=== PATIENT | female | born 1950 | race African-American/Black ===

== ENCOUNTER 2017-12-20 22:40 | Inpatient (IN) | payer OTHER ==
[2017-12-20] MEDS ORDERED: D50W 25 GM/50 ML SYRINGE IV ONE ×2 (22:58→23:51)
[2017-12-20 23:50] LABS: Absolute Lymphocytes (CBC) 1.7 K/uL (0.7-4.9); Absolute Monocytes 0.4 K/uL (0.1-1.3); Basophils % 0.2 % (0-1.3); Hematocrit 38.1 % (36.0-45.0); Lymphocytes % 28.5 % (15.3-44.8); MCV 90.9 fL (80-100); MPV 10.3 fL (7.6-11.3); Monocytes % 5.9 % (3.3-12.3); RBC Red Blood Cell Count 4.19 M/uL (3.86-4.86)
[2017-12-20 23:57] LABS: Bicarbonate 21 mEq/L (21-31); Glucose Level 101 mg/dL (65-120); Lipase 193 U/L (22-51); Potassium 5.3 mEq/L (3.6-5.0); Sodium Level 140 mEq/L (135-145)
[2017-12-21 00:09] LABS: AST/SGOT 39 IU/L (10-42); Albumin 2.1 g/dL (3.2-5.5); Alkaline Phosphatase 144 IU/L (42-121); BUN Blood Urea Nitrogen 57 mg/dL (6-20); Bilirubin Direct 0.1 mg/dL (0-0.2); Bilirubin Total 0.4 mg/dL (0.3-1.2); Protein, Total 6.3 g/dL (6.0-8.3)
[2017-12-21 00:20] LABS: ALT/SGPT < 5 IU/L (10-60)
[2017-12-21 00:21] LABS: Amylase Level 205 U/L (28-100)
[2017-12-21 00:22] LABS: Blood Morphology Comment NOTED (NOT SEEN); Howell-Jolly Bodies NOTED; Platelet Estimate DECR; Platelets, Giant FEW
[2017-12-21] MEDS ORDERED: NA CHLORIDE 0.9% 500 ML ONE ×2 (01:09→02:22)
--- NOTE | 2017-12-21 01:29 | EDPHYS ---
Physician Documentation [facility] Name: Louisa Penn Age: 67 yrs Sex: Female : 1950 Arrival Date: 12/20/2017 Time: 22:41 Bed 2 Private MD: ED Physician Augusto Pollard HPI: 12/21 03:22 This 67 yrs old Black Female presents to ER via EMS with complaints of Low Blood Sugar. tw4 03:22 The patient or guardian reports hypoglycemia. Onset: The symptoms/episode tw4 began/occurred today. Associated signs and symptoms: Pertinent positives: None. Pertinent negatives: None. Current symptoms: In the emergency department the patient's symptoms are unchanged from the initial presentation. Unable to obtain HPI due to obtunded state, patient is in a persistent vegetative state. It is unknown whether or not the patient has had similar symptoms in the past. Historical: - Allergies: 12/20 22:52 Cipro; rv 22:52 Imitrex; rv 22:52 Iodine; rv 22:52 Vicodin; rv - Home Meds: 22:52 allopurinol 100 mg Oral tab 1 tab 2 times per day [Active]; aspirin 81 mg Oral chew rv [Active]; atorvastatin 20 mg Oral tab [Active]; Cymbalta 60 mg Oral cpDR [Active]; Lasix 40 mg Oral tab [Active]; levetiracetam 1,000 mg Oral tab [Active]; memantine 10 mg Oral tab [Active]; metformin 500 mg Oral tr24 [Active]; metoprolol tartrate 25 mg Oral tab 2 tabs once daily [Active]; ondansetron HCl 4 mg/5 mL Oral soln [Active]; Plavix 75 mg Oral tab [Active]; potassium chloride 10 mEq Oral cpER [Active]; Sinemet 25-100 mg Oral tab [Active]; trazodone 50 mg Oral tab [Active]; valsartan 320 mg Oral tab 1 tab once daily [Active]; - PMHx: 22:52 CVA; Diabetes - NIDDM; DYSPHAGIA; Hyperlipidemia; Hypertension; Parkinsons; unspecified rv convulsions; - Immunization history:: Adult Immunizations up to date. - Social history:: Smoking status: Patient/guardian denies using tobacco. - Ebola Screening: : Patient negative for fever greater than or equal to 101.5 degrees Fahrenheit, and additional compatible Ebola Virus Disease symptoms Patient denies exposure to infectious person Patient denies travel to an Ebola-affected area in the 21 days before illness onset No symptoms or risks identified at this time. ROS: 12/21 03:23 Constitutional: Negative for fever, chills, and weight loss, Cardiovascular: Negative tw4 for chest pain, palpitations, and edema, Respiratory: Negative for shortness of breath, cough, wheezing, and pleuritic chest pain, Abdomen/GI: Negative for abdominal pain, nausea, vomiting, diarrhea, and constipation, Back: Negative for injury and pain, MS/Extremity: Negative for injury and deformity, Skin: Negative for injury, rash, and discoloration, Neuro: Negative for headache, weakness, numbness, tingling, and seizure. Exam: 03:23 Constitutional: This is a well developed, well nourished patient who is awake, alert, tw4 and in no acute distress. Head/Face: Normocephalic, atraumatic. Chest/axilla: Normal chest wall appearance and motion. Nontender with no deformity. No lesions are appreciated. Cardiovascular: Regular rate and rhythm with a normal S1 and S2. No gallops, murmurs, or rubs. Normal PMI, no JVD. No pulse deficits. Respiratory: Lungs have equal breath sounds bilaterally, clear to auscultation and percussion. No rales, rhonchi or wheezes noted. No increased work of breathing, no retractions or nasal flaring. 03:23 Abdomen/GI: Inspection: distension, that is mild, Bowel sounds: diminished, Palpation: mass, that is hard, of the suprapubic area, right lower quadrant and left lower quadrant. Vital Signs: 12/20 22:53 BP 111 / 74; Pulse 67; Resp 16; Temp 97.5; Weight 72.57 kg (R); rv 23:30 BP 94 / 72; Pulse 69; Resp 14; rv 12/21 00:00 BP 94 / 66; Pulse 69; Resp 16; Pulse Ox 100% ; rv 01:00 BP 76 / 48; Pulse 72; Resp 16; Pulse Ox 100% ; bp 02:00 BP 79 / 47; Pulse 69; Resp 18; Pulse Ox 100% ; rv 02:39 BP 86 / 65; Pulse 70; Resp 12; Pulse Ox 99% ; rv 03:00 BP 88 / 72; Pulse 69; Resp 13; Pulse Ox 98% ; bp 03:30 BP 104 / 84; Pulse 74; Resp 15; Pulse Ox 94% ; bp 04:00 BP 62 / 40; Pulse 79; Resp 14; Pulse Ox 90% ; bp 04:30 BP 105 / 68; Pulse 85; Resp 11; Pulse Ox 86% on R/A; bp 04:45 BP 67 / 45; Pulse 87; Resp 12; Pulse Ox 82% ; bp 05:00 BP 80 / 56; Pulse 90; Resp 13; Pulse Ox 100% on Non-rebreather mask; bp Procedures: 03:18 Central Line: the site was prepped with Betadine, in sterile fashion, a triple lumen tw4 catheter was inserted, in the right femoral vein, in 1 attempts. placement was verified, by blood return, the site was dressed with using sterile technique, the patient tolerated the procedure, well. MDM: 12/20 22:49 Patient medically screened. tw4 12/21 03:18 Data reviewed: vital signs, EMS record. Data reviewed: nurses notes. Data interpreted: tw4 monitoring engineer: rhythm is normal sinus rhythm, Pulse oximetry: Interpretation: normal. Counseling: I had a detailed discussion with the patient and/or guardian regarding: the historical points, exam findings, and any diagnostic results supporting the discharge/admit diagnosis. Physician consultation: Juliann Broderick MD was contacted at 01:00, regarding patient's condition. Physician consultation: would like admission per Dr. Cruz Martinez MD called Dr Martinez concerning patient several times in the ED starting at 2330. Dr Martinez had not returned the call after several messages being left on his phone. D/W Dr Poole who stated that he would take care of the patient during the initial hospital stay but the patient will need to admitted to Dr Martinez. Admission orders: after a detailed discussion of the patient's condition and case, the admit orders are written by me. 12/20 22:56 Order name: Amylase, Serum; Complete Time: 01:24 tw4 12/20 22:56 Order name: Basic Metabolic Panel; Complete Time: 01:24 tw4 12/21 01:25 Interpretation: Normal except: K 5.3; BUN 57; CRE 3.56; GFR 15. tw4 12/20 22:56 Order name: CBC with Diff; Complete Time: 01:24 tw4 12/21 01:25 Interpretation: HGB 11.7; MCV 90.9; MCHC 30.8; PLT 48; RDW 19.2. tw4 12/20 22:56 Order name: Hepatic Function; Complete Time: 01:24 tw4 12/20 22:56 Order name: Lipase; Complete Time: 01:24 tw4 12/21 00:07 Interpretation: Normal except: LIP 193. tw4 12/20 22:56 Order name: Urine Microscopic Only tw4 12/21 00:22 Order name: Manual Differential; Complete Time: 01:24 EDDE 12/21 01:25 Interpretation: Within normal limits. tw4 12/21 01:09 Order name: CT Abd/Pelvis - Without Cont tw4 12/21 01:26 Order name: Lactate; Complete Time: 03:00 4 12/21 01:26 Order name: Blood Culture* tw4 12/21 04:44 Order name: Urine Dipstick--Ancillary (enter results) ms 12/21 05:28 Order name: Urine Dipstick-Ancillary EDDE 12/21 05:58 Order name: Lactate Sepsis 2 HR Follow-up EDDE 12/20 22:56 Order name: IV Saline Lock; Complete Time: 22:57 tw4 12/20 22:56 Order name: Labs collected and sent; Complete Time: 23:45 tw4 12/20 22:57 Order name: Blood Glucose Level; Complete Time: 22:59 rv 12/21 04:24 Order name: [place]; Complete Time: 04:35 tw4 Administered Medications: 12/20 23:11 Drug: D50W 50 ml Route: IVP; Site: right forearm; rv 23:34 Follow up: Response: Blood sugar is elevated rv 23:45 Drug: D50W 50 ml Route: IVP; Site: right antecubital; rv 03 00:06 Follow up: Response: No adverse reaction rv 01:00 Drug: NS 0.9% 500 ml Route: IV; Rate: bolus; Site: right forearm; bp 03:31 Follow up: IV Status: Completed infusion; IV Intake: 500ml bp 02:15 Drug: NS 0.9% 500 ml Route: IV; Rate: bolus; Site: right forearm; rv 03:32 Follow up: IV Status: Completed infusion; IV Intake: 500ml bp 03:30 Drug: Zosyn 2.25 grams Route: IVPB; Infused Over: 60 mins; Site: right femoral; bp 04:26 Follow up: IV Status: Completed infusion bp 03:30 Drug: Flagyl 500 mg Volume: 100 ml; Route: IVPB; Rate: 200 ml/hr; Infused Over: 30 bp mins; Site: right femoral; 04:25 Follow up: IV Status: Completed infusion bp 03:30 Drug: Dopamine drip 5 mcg/kg/min - (DOPamine 400 mg, D5W 250 ml) Route: IV; Rate: bp calculated rate; Site: right femoral; 05:04 Follow up: IV Status: Infusion continued upon admission bp 04:26 Drug: Levophed (4 mg/250 mL D5W 4 mcg/min Route: IV; Rate: calculated rate; Site: right bp femoral; 05:03 Follow up: IV Status: Infusion continued upon admission bp 04:27 Drug: NS 0.9% (30 ml/kg) 30 ml/kg Route: IV; Rate: bolus; Site: right femoral; bp 05:05 Follow up: IV Status: Infusion continued upon admission bp Point of Care Testing: Blood Glucose: 12/20 22:55 Blood Glucose: 34 mg/dL; rv 23:30 Blood Glucose: 68 mg/dL; rv 12/21 00:26 Blood Glucose: 194 mg/dL; ao Ranges: Critical Glucose Levels:Adult <50 mg/dl or >400 mg/dl <40 mg/dl or >180 mg/dl Disposition: 12/21/17 01:28 Hospitalization ordered by Cruz Martinez for Inpatient Admission. Preliminary diagnosis are Hypotension, unspecified, Acute kidney failure. - Bed requested for Intensive Care Unit. - Status is Inpatient Admission. rv - Condition is Stable. - Problem is new. - Symptoms have improved. UTI on Admission? No Signatures: Dispatcher [employer] YENNYDE Tiffanie Jeronimo RN RN kl Peltier, Brian, RN RN bp Wadley, Terrence, MD MD tw4 Aneesh Villatoro RN RN rv Corrections: (The following items were deleted from the chart) 12/20 23:40 22:56 Creatinine for Radiology+C.LAB.BRZ ordered. [facility] 06/03 01:25 00:07 K 5.3. tw4 01:25 01:24 Normal except: K 5.3; BUN 57; CRE 3.56. tw4 tw4 04:55 01:28 Hospitalization Ordered by Cruz Martinez MD for Inpatient Admission. Preliminary kl diagnosis is Hypotension, unspecified; Acute kidney failure. Bed requested for Telemetry/MedSurg (Inpatient). Status is Inpatient Admission. Condition is Stable. Problem is new. Symptoms have improved. UTI on Admission? No. tw4 06:26 04:55 12/21/2017 01:28 Hospitalization Ordered by Cruz Martinez MD for Inpatient rv Admission. Preliminary diagnosis is Hypotension, unspecified; Acute kidney failure. Bed requested for Intensive Care Unit. Status is Inpatient Admission. Condition is Stable. Problem is new. Symptoms have improved. UTI on Admission? No. kl
--- NOTE | 2017-12-21 01:29 | ER ---
Nurse's Notes [facility] Name: Louisa Penn Age: 67 yrs Sex: Female : 1950 Arrival Date: 12/20/2017 Time: 22:41 Bed 2 Private MD: Diagnosis: Hypotension, unspecified;Acute kidney failure Presentation: 12/20 22:48 Presenting complaint: EMS states: LOW BLOOD SUGAR. Transition of care: patient was rv received from another setting of care ([facility]. Onset of symptoms is unknown. Risk Assessment: Do you want to hurt yourself or someone else? Patient reports no desire to harm self or others. Initial Sepsis Screen: Does the patient meet any 2 criteria? No. Patient's initial sepsis screen is negative. Does the patient have a suspected source of infection? No. Patient's initial sepsis screen is negative. Care prior to arrival: 8 FAILED PIV ATTEMPTS ENERGY CONSULTANT. 22:48 Method Of Arrival: EMS: [facility] rv 22:48 Acuity: RILEY 1 rv Historical: - Allergies: 22:52 Cipro; rv 22:52 Imitrex; rv 22:52 Iodine; rv 22:52 Vicodin; rv - Home Meds: 22:52 allopurinol 100 mg Oral tab 1 tab 2 times per day [Active]; aspirin 81 mg Oral chew rv [Active]; atorvastatin 20 mg Oral tab [Active]; Cymbalta 60 mg Oral cpDR [Active]; Lasix 40 mg Oral tab [Active]; levetiracetam 1,000 mg Oral tab [Active]; memantine 10 mg Oral tab [Active]; metformin 500 mg Oral tr24 [Active]; metoprolol tartrate 25 mg Oral tab 2 tabs once daily [Active]; ondansetron HCl 4 mg/5 mL Oral soln [Active]; Plavix 75 mg Oral tab [Active]; potassium chloride 10 mEq Oral cpER [Active]; Sinemet 25-100 mg Oral tab [Active]; trazodone 50 mg Oral tab [Active]; valsartan 320 mg Oral tab 1 tab once daily [Active]; - PMHx: 22:52 CVA; Diabetes - NIDDM; DYSPHAGIA; Hyperlipidemia; Hypertension; Parkinsons; unspecified rv convulsions; - Immunization history:: Adult Immunizations up to date. - Social history:: Smoking status: Patient/guardian denies using tobacco. - Ebola Screening: : Patient negative for fever greater than or equal to 101.5 degrees Fahrenheit, and additional compatible Ebola Virus Disease symptoms Patient denies exposure to infectious person Patient denies travel to an Ebola-affected area in the 21 days before illness onset No symptoms or risks identified at this time. Screenin:58 Abuse screen: Denies threats or abuse. Denies injuries from another. Nutritional rv screening: No deficits noted. Tuberculosis screening: No symptoms or risk factors identified. Fall Risk None identified. Assessment: 12/21 00:00 General: Appears in no apparent distress. comfortable, obese, Behavior is unresponsive. rv Pain: Unable to use pain scale. Patient is unresponsive. 01:00 Reassessment: PT TO CT WITH BAND SAW FILER. rv 02:00 Reassessment: PT SEEN BY ADMIT MD. ER MD TO PLACE CVC FOR PRESSURE MAINTENANCE, AWARE rv OF HYPOTENSION. 03:00 Reassessment: ICU ADMIT IN PROCESS, PT REMAINS MINIMALLY RESPONSIVE. bp 04:00 Reassessment: PT REMAINS HYPOTENSIVE, MD NOTIFIED. NO CHANGE IN PT MENTATION. bp 04:30 Reassessment: PT MARKEDLY HYPOTENSIVE, MD AT B/S, FURTHER PRESSORS INITIATED. bp 04:45 Reassessment: PT MARKEDLY HYPOTENSIVE, DOPAMINE AT MAX (40 MCG/KG/MIN) AND LEVOPHED AT bp 7.5 MCG/MIN. MD AWARE. 05:00 Reassessment: LEVOPHED AT 10 MCG/MIN, DOPAMINE AT 40 MCG/KG/MIN. ICU BED ASSIGNED, bp ADMIT ORDERS PENDING. Vital Signs: 12/20 22:53 BP 111 / 74; Pulse 67; Resp 16; Temp 97.5; Weight 72.57 kg (R); rv 23:30 BP 94 / 72; Pulse 69; Resp 14; rv 12/21 00:00 BP 94 / 66; Pulse 69; Resp 16; Pulse Ox 100% ; rv 01:00 BP 76 / 48; Pulse 72; Resp 16; Pulse Ox 100% ; bp 02:00 BP 79 / 47; Pulse 69; Resp 18; Pulse Ox 100% ; rv 02:39 BP 86 / 65; Pulse 70; Resp 12; Pulse Ox 99% ; rv 03:00 BP 88 / 72; Pulse 69; Resp 13; Pulse Ox 98% ; bp 03:30 BP 104 / 84; Pulse 74; Resp 15; Pulse Ox 94% ; bp 04:00 BP 62 / 40; Pulse 79; Resp 14; Pulse Ox 90% ; bp 04:30 BP 105 / 68; Pulse 85; Resp 11; Pulse Ox 86% on R/A; bp 04:45 BP 67 / 45; Pulse 87; Resp 12; Pulse Ox 82% ; bp 05:00 BP 80 / 56; Pulse 90; Resp 13; Pulse Ox 100% on Non-rebreather mask; bp ED Course: 12/20 22:41 Patient arrived in ED. ms 22:49 Augusto Pollard MD is Attending Physician. tw4 22:49 Triage completed. rv 22:53 Arm band placed on. rv 22:57 Inserted saline lock: 20 gauge in right forearm, using aseptic technique. rv 22:58 Patient has correct armband on for positive identification. Placed in gown. Bed in low rv position. Call light in reach. Side rails up X2. 12/21 00:00 Assisted provider with central line placement. Set up central line tray. Triple lumen bp line placed in right femoral. Line placed by Augusto Pollard MD Dressed with Tegaderm, Patient tolerated well. Before procedure, did Practitioner(s) obtain informed consent? No. Patient \T\ family education about procedure, CLABSI prevention and S/S of infection? No. Time-out/Briefing performed prior to start of procedure? Yes. Was handwashing/sanitizing done immediately prior to procedure? Yes. Was patient positioned to in a way to prevent air embolism? Yes. Was procedure site sterilized? Yes, with chlorhexidine. Was the site allowed to dry? Yes. Was local anesthetic and/or sedation utilized? Yes. During the procedure, did the Practitioner(s) maintain a sterile field? Yes. Were unused ports clamped during insertion? Yes. Was a 2nd qualified MD obtained after 3 unsuccessful insertion attempts? No. Was blood aspirated from each lumen? Yes. After the procedure, did the Practitioner(s) clean the site and apply a sterile dressing? Yes. Inserted saline lock: 20 gauge in left antecubital area, using aseptic technique. 00:29 Adelso Lucero RN is Primary Nurse. bp 01:27 Cruz Martinez MD is Hospitalizing Provider. tw4 01:37 CT Abd/Pelvis - Without Cont In Process Unspecified. EDMS 03:00 Overton cath inserted, using sterile technique, 16 Fr., by me, by administrative fellow. bp 04:59 Patient admitted, IV remains in place. bp Administered Medications: 12/20 23:11 Drug: D50W 50 ml Route: IVP; Site: right forearm; rv 23:34 Follow up: Response: Blood sugar is elevated rv 23:45 Drug: D50W 50 ml Route: IVP; Site: right antecubital; rv 12/21 00:06 Follow up: Response: No adverse reaction rv 01:00 Drug: NS 0.9% 500 ml Route: IV; Rate: bolus; Site: right forearm; bp 03:31 Follow up: IV Status: Completed infusion; IV Intake: 500ml bp 02:15 Drug: NS 0.9% 500 ml Route: IV; Rate: bolus; Site: right forearm; rv 03:32 Follow up: IV Status: Completed infusion; IV Intake: 500ml bp 03:30 Drug: Zosyn 2.25 grams Route: IVPB; Infused Over: 60 mins; Site: right femoral; bp 04:26 Follow up: IV Status: Completed infusion bp 03:30 Drug: Flagyl 500 mg Volume: 100 ml; Route: IVPB; Rate: 200 ml/hr; Infused Over: 30 bp mins; Site: right femoral; 04:25 Follow up: IV Status: Completed infusion bp 03:30 Drug: Dopamine drip 5 mcg/kg/min - (DOPamine 400 mg, D5W 250 ml) Route: IV; Rate: bp calculated rate; Site: right femoral; 05:04 Follow up: IV Status: Infusion continued upon admission bp 04:26 Drug: Levophed (4 mg/250 mL D5W 4 mcg/min Route: IV; Rate: calculated rate; Site: right bp femoral; 05:03 Follow up: IV Status: Infusion continued upon admission bp 04:27 Drug: NS 0.9% (30 ml/kg) 30 ml/kg Route: IV; Rate: bolus; Site: right femoral; bp 05:05 Follow up: IV Status: Infusion continued upon admission bp Point of Care Testing: Blood Glucose: 12/20 22:55 Blood Glucose: 34 mg/dL; rv 23:30 Blood Glucose: 68 mg/dL; rv 12/21 00:26 Blood Glucose: 194 mg/dL; ao Ranges: Intake: 03:31 IV: 500ml; Total: 500ml. bp 03:32 IV: 500ml; Total: 1000ml. bp Outcome: 01:28 Decision to Hospitalize by Provider. tw4 05:01 critical bp 05:01 Instructed on the need for admit. 05:48 Admitted to ICU accompanied by nurse, accompanied by tech, via stretcher, room 2, bp Report called to TATYANA DOVE RN 06:26 Patient left the ED. rv Signatures: Dispatcher [employer] EDNiurka Watts ms, Alex, RN RN Adelso Mcgregor RN RN Augusto Sweet MD MD tw4 Aneesh Villatoro RN RN rv Corrections: (The following items were deleted from the chart) 12/20 23:36 22:53 72.57 kg Reported; rv rv 12/21 05:05 05:00 Reassessment: LEVOPHED AT 10 MCG/MIN, DOPAMINE AT 40 MCG/KG/MIN. ICU BED ASSIGNED bp bp
[2017-12-21] MEDS ORDERED: PIPER/TAZO/NS 3.375gm 0 GM/0 ML BAG ONE (03:20)
[2017-12-21] MEDS ORDERED: DOPAMINE/D5W 400 MG/250 ML BAG IV ONE ×2 (03:20→06:03)
[2017-12-21] MEDS ORDERED: PIPER/TAZO/NS 2.25gm 2.25 GM/50 ML BAG ONE (03:24)
[2017-12-21] MEDS ORDERED: METRONIDAZOLE 500mg IVPB 500 MG/100 ML BAG IV ONE (03:24)
[2017-12-21] MEDS ORDERED: NA CHLORIDE 0.9% 1,000 ML ONE ×2 (04:20→04:55)
[2017-12-21] MEDS ORDERED: NOREPINEPHRINE 4mg/D5W 250mL 4 MG/250 ML BAG IV ONE (04:20)
[2017-12-21 05:28] LABS: Urine Blood 2+ (NEG); Urine Glucose NEGATIVE (NEG); Urine Protein 1+ (NEG)
[2017-12-21 05:29] LABS: Urine Amorphous Sediment 1+ /HPF (NONE SEEN); Urine Bacteria >50 /HPF (<20); Urine Culture Reflex Order REFLEXED
[2017-12-21] MEDS ORDERED: NOREPINEPHRINE 4 MG in D5W 250 ML IV PRN (05:57)
[2017-12-21] MEDS ORDERED: D50W 25 GM/50 ML SYRINGE IV PRN ×2 (07:06→11:30)
[2017-12-21] MEDS: NA CHLORIDE 0.9% 1,000 ML IV SCH ×6 (07:14→19:54)
--- NOTE | 2017-12-21 09:07 | RAD REPORT ---
EXAM DESCRIPTION: CT - Abdomen Pelvis Wo Contrast - 12/21/2017 6:17 am CLINICAL HISTORY: Abdominal pain COMPARISON: None TECHNIQUE: Computed axial tomography of the abdomen and pelvis was obtained. IV and oral contrast we re not requested. A preliminary report was generated by [employer] and reviewed prior to this dictation tissue All CT scans are performed using dose optimization technique as appropriate and may include automated exposure control or mA/KV adjustment according to patient size. FINDINGS: The evaluation of solid organs, vessels and bowel is limited secondary to the lack of con trast administration. Small to moderate bilateral pleural effusions are present with bibasilar atelectasis. The liver, spleen, pancreas, adrenals and kidneys appear grossly normal. A small to moderate amount of ascites is present within the pelvis. A small amount of ascites is seen within the abdomen. The wall of the entire colon is mildly to moderately dilated. The cecum measures 6.8 centimeters. An umbilical hernia contains ascites. The neck measures 4 centimeters. Diffuse edema is present the subcutaneous tissues The liver, spleen, pancreas, adrenals and kidneys appear grossly normal IMPRESSION: Mild to moderate dilatation of the colon consistent with colitis
[2017-12-21] MEDS: DOPAMINE/D5W 400 MG/250 ML BAG IV PRN ×2 (10:39→17:45)
[2017-12-21] MEDS ORDERED: NOREPINEPHRINE 8 MG in Dextrose 5%-Water 500 ML IV PRN (10:54)
[2017-12-21 11:07] VITALS: BMI 31.5
[2017-12-21] MEDS ORDERED: ONDANSETRON 4 MG/2 ML VIAL IV PRN (11:30)
[2017-12-21] MEDS: INSULIN -REGULAR HUMAN 50 UNIT/0.5 ML ML SQ SCH ×2 (11:30→16:30)
[2017-12-21] MEDS ORDERED: GLUCAGON 1 MG/VIAL IM PRN (11:30)
[2017-12-21] MEDS ORDERED: SODIUM CHLORIDE 0.9% 10ML INJ IV PRN (11:30)
--- NOTE | 2017-12-21 11:41 | P.HP ---
Certification for Inpatient Patient admitted to: Inpatient With expected LOS: >2 Midnights Patient will require the following post-hospital care: None Practitioner: I am a practitioner with admitting privileges, knowledge of patient current condition, hospital course, and medical plan of care. Services: Services provided to patient in accordance with Admission requirements found in Title 42 Section 412.3 of the Code of Federal Regulations Patient History Date of Service: 12/21/17 Primary Care Provider: Michelle Reason for admission: Sepsis History of Present Illness: Patient is a retirement patient suffering from advanced dementia, seizures and diabetes. She has been mostly bed bound. I had seen her on Friday. She was not tolerating food. Had been having difficulty swallowing. She was sent to the ER with hypotension. She is now in the unit and has vomitted a few times. She had colitis on CT Scan. she is hypoglycemic, hypoxic and hypotensive on pressors. Have discussed with the family. They would like her not to be intubated. Are okay with a bipap if necessary and blood transfusions. No cpr, no shocks. If the patient does get into a code situation we should let her rest in piece per the family Allergies acetaminophen [From Vicodin] Allergy (Mild, Verified 12/02/13 11:46) Itching/Hives/Rash Fish Containing Products Allergy (Mild, Verified 12/02/13 11:46) Itching/Hives/Rash hydrocodone bitartrate [From Vicodin] Allergy (Mild, Verified 12/02/13 11:46) Itching/Hives/Rash sumatriptan [From Imitrex] Allergy (Mild, Verified 12/02/13 11:46) Itching/Hives/Rash sumatriptan succinate [From Imitrex] Allergy (Mild, Verified 12/02/13 11:46) Itching/Hives/Rash ciprofloxacin Allergy (Unknown, Verified 12/02/13 11:46) Itching/Hives/Rash iodine Allergy (Unknown, Verified 12/02/13 11:46) Itching/Hives/Rash Pork/Porcine Containing Products Allergy (Unknown, Verified 12/02/13 11:46) Itching/Hives/Rash ciprofloxacin HCl [From Cipro] Allergy (Verified 12/02/13 11:46) Unknown cheddar cheese flavored foods Allergy (Unknown, Uncoded 11/19/13 22:13) Itching/Hives/Rash IODINE CONTAINING MULTIVITAMIN Allergy (Uncoded 12/02/13 08:57) Unknown Vicodin ES Allergy (Uncoded 12/02/13 08:57) Unknown Home Medications: Acetaminophen [Acetaminophen Extra Strength] 500 mg PO Q6H PRN 12/21/17 Acetaminophen with Codeine [Acetaminophen-Cod #3 Tablet] 1 tab PO Q6H PRN Acidophilus/Bifido Longum [Lactobacillus Capsule] 1 cap PO DAILY 12/21/17 Allopurinol 2 tab PO DAILY 12/21/17 Aspirin Chewable [Aspirin Chewable*] 81 mg PO DAILY 12/21/17 Atorvastatin Calcium [Lipitor] 20 mg PO BEDTIME 12/21/17 Carbidopa/Levodopa 25-100 [Sinemet 25-100] 1 tab PO TID 12/21/17 Clopidogrel Bisulfate [Plavix*] 75 mg PO DAILY 12/21/17 Diphenhydramine [Benadryl*] 25 mg PO BID PRN 12/21/17 Duloxetine HCl 40 mg PO DAILY 12/21/17 Furosemide 40 mg PO DAILY 12/21/17 Hydroxyzine HCl [Atarax] 50 mg PO Q8H PRN 12/21/17 Insulin Detemir [Levemir*] 5 units SQ BEDTIME 12/21/17 Loperamide HCl [Imodium A-D] 2 mg PO Q8H PRN 12/21/17 Mag Hydroxide 8% [Milk Of Magnesia] 30 ml PO DAILY PRN 12/21/17 Memantine HCl [Memantine HCl ER] 1 cap PO DAILY 12/21/17 Metformin HCl 500 mg PO BID 12/21/17 Ondansetron HCl [Zofran] 4 mg PO Q6H PRN 12/21/17 RX: Ascorbic Acid 500 mg PO BID 12/21/17 RX: Divalproex Sodium 4 cap PO TID 12/21/17 RX: Insulin Aspart [Novolog Flexpen] See Protocol SQ ACHS 12/21/17 RX: Levetiracetam [Keppra] 1 tab PO BID 12/21/17 RX: Metoprolol Tartrate [Lopressor*] 50 mg PO BID 12/21/17 RX: Potassium Chloride 10 meq PO DAILY 12/21/17 RX: Zinc Sulfate [Zinc Sulfate*] 220 mg PO DAILY 12/21/17 - Past Medical/Surgical History Has patient received pneumonia vaccine in the past: Yes Diabetic: Yes -: DM -: CVA -: Hyperlipidemia -: GERD -: HTN -: Gout -: Seizures -: Dementia - Social History Smoking Status: Never smoker Alcohol use: No CD- Drugs: No Caffeine use: No Place of Residence: Jail Review of Systems is unable to be obtained Physical Examination - Vital Signs Temperature: 97.5 F Blood Pressure: 79/48 Pulse: 106 Respirations: 17 Pulse Ox (%): 90 - Physical Exam General: Unresponsive HEENT: Atraumatic, PERRLA, Mucous membr. moist/pink, EOMI, Sclerae nonicteric Neck: Supple, 2+ carotid pulse no bruit, No LAD, Without JVD or thyroid abnormality Respiratory: Clear to auscultation bilaterally, Normal air movement Cardiovascular: Regular rate/rhythm, Normal S1 S2 Gastrointestinal: Normal bowel sounds, No tenderness Musculoskeletal: No tenderness Integumentary: No rashes Neurological: Normal gait, Normal speech, Normal strength at 5/5 x4 extr, Normal tone, Normal affect Lymphatics: No axilla or inguinal lymphadenopathy - Studies Laboratory Data (last 24 hrs) 12/20/17 23:34: WBC 6.0, Hgb 11.7 L, Hct 38.1, Plt Count 48 L* 12/20/17 23:34: Sodium 140, Potassium 5.3 H, BUN 57 H, Creatinine 3.56 H, Glucose 101, Total Bilirubin 0.4, AST 39, ALT < 5 L, Alkaline Phosphatase 144 H , Amylase 205 H*, Lipase 193 H 12/20/17 22:56: Creatinine Cancelled Assessment and Plan - Problems (Diagnosis) (1) Sepsis Current Visit: Yes Status: Acute Plan: Patient is most likely septic from colitis. As she is not eating well she has hypoalbinemia. Which did not help when it comes to fighting infection. Will start her on aggressive fluid hydration. Place an NG tube. Continue Flagyl and antibiotics. Will see if we can get her off the pressors. Will start scheduled dosage of zofran and protonix. Check stool cultures for c dif. Qualifiers: Sepsis type: sepsis due to unspecified organism Qualified Code(s): A41.9 - Sepsis, unspecified organism (2) Seizure disorder Current Visit: Yes Status: Acute Plan: Will need to place an NG tube so we can give her Keppra. Start seizure precautions. (3) Diabetes 1.5, managed as type 2 Current Visit: Yes Status: Acute Plan: Will hold her meds. She is currently hypotensive on a d5 drip. Will check accuchecks q 1hour. Mild insulin sliding scale if anything. (4) Dementia Current Visit: Yes Status: Acute Plan: Patient is currently spending most of her time in Bed. She has been mostly non verbal. The family states she has been saying she is tired and ready to go. She has not been eating well. Which is always a bad sign. Qualifiers: Dementia type: Alzheimer's disease (5) End of life care Current Visit: Yes Status: Acute Plan: Have discussed with family. They seem well aware. Will make her a DNR. Hopefully she will recover from the sepsis. At that point we can consider a swallow evaluation. Then discuss PEG tubes. I have told the family that most studies show that PEG's do not decrease mortality Discharge Plan: Jail Plan to discharge in: Greater than 2 days - Advance Directives Does patient have a Living Will: Yes Does patient have a Durable POA for Healthcare: Yes - Code Status/Comfort Care Code Status Assessed: Yes Code Status: Do Not Resuscitate Physician Review: Patient Assessed, Agree with Above Assessment and Plan ( family agreed. Daughter and 2 other family members) Critical Care: Yes Time Spent Managing Pts Care (In Minutes): 45
[2017-12-21 12:09] LABS: Arterial Blood Carboxyhemoglob 0.6 % (0-1.5); Blood Gas Oxyhemoglobin 84.1 % (94-97)
[2017-12-21] MEDS ORDERED: levETIRAcetam 500 MG TAB PO SCH (13:00)
[2017-12-21] MEDS: METRONIDAZOLE 500mg IVPB 500 MG/100 ML BAG IV SCH ×2 (13:17→16:53)
[2017-12-21] MEDS: PIPER/TAZO/NS 2.25gm 2.25 GM/50 ML BAG IVPB SCH ×2 (13:24→17:40)
[2017-12-21] MEDS ORDERED: NOREPINEPHRINE IV PRN (13:28)
[2017-12-21] MEDS ORDERED: D5W IV PRN (13:28)
[2017-12-21 15:07] VITALS: O2SAT 92
[2017-12-21] MEDS ORDERED: ENOXAPARIN 30 MG/0.3 ML SQ SCH (17:00)
[2017-12-21 18:26] VITALS: TEMP 95.3
[2017-12-21 18:41] VITALS: BP 60/48
[2017-12-21] MEDS ORDERED: LEVETIRACETAM PO SCH (21:00)
[2017-12-22] MEDS ORDERED: PANTOPRAZOLE 40 MG INJ IVP SCH (09:00)
--- NOTE | 2017-12-22 10:01 | P.DS ---
Admission Date: 12/21/17 Discharge Date: 12/21/17 Primary Care Provider: Michelle Disposition: Reason for Admission: Sepsis - Problems (1) Sepsis Status: Acute Qualifiers: Sepsis type: sepsis due to unspecified organism Qualified Code(s): A41.9 - Sepsis, unspecified organism (2) Seizure disorder Status: Acute (3) Diabetes 1.5, managed as type 2 Status: Acute (4) Dementia Status: Acute Qualifiers: Dementia type: Alzheimer's disease (5) End of life care Status: Acute Brief History of Present Illness: Patient is a [facility] patient suffering from advanced dementia, seizures and diabetes. She has been mostly bed bound. I had seen her on Friday. She was not tolerating food. Had been having difficulty swallowing. She was sent to the ER with hypotension. She is now in the unit and has vomitted a few times. She had colitis on CT Scan. she is hypoglycemic, hypoxic and hypotensive on pressors. Have discussed with the family. They would like her not to be intubated. Are okay with a bipap if necessary and blood transfusions. No cpr, no shocks. If the patient does get into a code situation we should let her rest in piece per the family Hospital Course: Patient continued to worsen. Was fluid resisitate. No urine output. Fluid overload on auscultation of the lungs. She has been worsening. Family had made her a DNR. They were at the bedside when the patient . We wish the family the best of luck. Thank you for allowing me to take part in her care. Vital Signs/Physical Exam: Temp Pulse Resp BP Pulse Ox 95.3 F L 98 H 11 L 60/48 L 94 12/21/17 16:00 12/21/17 18:30 12/21/17 18:30 12/21/17 18:30 12/21/17 15:15 General: Other (Patient ) Laboratory Data at Discharge: WBC 6.0 K/uL (4.3-10.9) 12/20/17 23:34 Hgb 11.7 g/dL (12.0-15.0) L 12/20/17 23:34 Hct 38.1 % (36.0-45.0) 12/20/17 23:34 Plt Count 48 K/uL (152-406) L* 12/20/17 23:34 Sodium 140 mEq/L (135-145) 12/20/17 23:34 Potassium 5.3 mEq/L (3.6-5.0) H 12/20/17 23:34 BUN 57 mg/dL (6-20) H 12/20/17 23:34 Creatinine 3.56 mg/dL (0.44-1.00) H 12/20/17 23:34 Glucose 101 mg/dL (65-120) 12/20/17 23:34 Total Bilirubin 0.4 mg/dL (0.3-1.2) 12/20/17 23:34 AST 39 IU/L (10-42) 12/20/17 23:34 ALT < 5 IU/L (10-60) L 12/20/17 23:34 Alkaline Phosphatase 144 IU/L (42-121) H 12/20/17 23:34 Amylase 205 U/L (28-100) H* 12/20/17 23:34 Lipase 193 U/L (22-51) H 12/20/17 23:34 Home Medications: Acetaminophen [Acetaminophen Extra Strength] 500 mg PO Q6H PRN 12/21/17 Acetaminophen with Codeine [Acetaminophen-Cod #3 Tablet] 1 tab PO Q6H PRN Acidophilus/Bifido Longum [Lactobacillus Capsule] 1 cap PO DAILY 12/21/17 Allopurinol 2 tab PO DAILY 12/21/17 Ascorbic Acid 500 mg PO BID 12/21/17 Aspirin Chewable [Aspirin Chewable*] 81 mg PO DAILY 12/21/17 Atorvastatin Calcium [Lipitor] 20 mg PO BEDTIME 12/21/17 Carbidopa/Levodopa 25-100 [Sinemet 25-100] 1 tab PO TID 12/21/17 Clopidogrel Bisulfate [Plavix*] 75 mg PO DAILY 12/21/17 Diphenhydramine [Benadryl*] 25 mg PO BID PRN 12/21/17 Divalproex Sodium 4 cap PO TID 12/21/17 Duloxetine HCl 40 mg PO DAILY 12/21/17 Furosemide 40 mg PO DAILY 12/21/17 Hydroxyzine HCl [Atarax] 50 mg PO Q8H PRN 12/21/17 Insulin Aspart [Novolog Flexpen] See Protocol SQ ACHS 12/21/17 Insulin Detemir [Levemir*] 5 units SQ BEDTIME 12/21/17 Levetiracetam [Keppra] 1 tab PO BID 12/21/17 Loperamide HCl [Imodium A-D] 2 mg PO Q8H PRN 12/21/17 Mag Hydroxide 8% [Milk Of Magnesia] 30 ml PO DAILY PRN 12/21/17 Memantine HCl [Memantine HCl ER] 1 cap PO DAILY 12/21/17 Metformin HCl 500 mg PO BID 12/21/17 Metoprolol Tartrate [Lopressor*] 50 mg PO BID 12/21/17 Ondansetron HCl [Zofran] 4 mg PO Q6H PRN 12/21/17 Potassium Chloride 10 meq PO DAILY 12/21/17 Zinc Sulfate [Zinc Sulfate*] 220 mg PO DAILY 12/21/17 Time spent managing pt's care (in minutes): 30
== END 2017-12-21 22:55 | disposition expired | DRG 871 ==
LOC: ER 22:40 → ERHOLD 12-21 04:20 → 3RD-ICU 12-21 05:29
PROVIDERS: ADMIT Internal Medicine; ATTEND Internal Medicine
PROC: 5A09357 Assistance with Respiratory Ventilation, Less than 24 Consecutive Hours, Continuous Positive Airway Pressure (ICD-10-PCS; principal; 2017-12-21)
DX: A41.9 Sepsis, unspecified organism (principal); R65.21 Severe sepsis with septic shock; N17.9 Acute kidney failure, unspecified; J90 Pleural effusion, not elsewhere classified; F03.90 Unspecified dementia, unspecified severity, without behavioral disturbance, psychotic disturbance, mood disturbance, and anxiety; G40.909 Epilepsy, unspecified, not intractable, without status epilepticus; E11.9 Type 2 diabetes mellitus without complications; I10 Essential (primary) hypertension; E78.5 Hyperlipidemia, unspecified; M10.9 Gout, unspecified; E88.09 Other disorders of plasma-protein metabolism, not elsewhere classified; I95.9 Hypotension, unspecified; K52.9 Noninfective gastroenteritis and colitis, unspecified; Z86.73 Personal history of transient ischemic attack (TIA), and cerebral infarction without residual deficits; Z66 Do not resuscitate; Z88.0 Allergy status to penicillin; Z91.018 Allergy to other foods
CPT/HCPCS: 36415; 51702; 74176; 80048; 80076; 81003; 81015; 82150; 82805; 82962; 83605; 83690; 85025; 87040; 87077; 87086; 87088; 87186; 94660; 99291; 99292; J1265; J1650; J2405; J2543; J7030; J7060